=== PATIENT | female | born 1990 | race Two or more races ===

== ENCOUNTER 2020-09-21 14:55 | Emergency (ER) | payer OTHER ==
[~2020-09-21] VITALS: Ht 157.5 cm; Wt 68.6 kg
[2020-09-21 16:05] LABS: BASO % 0 % (0-3); EOS # 0.1 x10^3/uL (0.0-0.7); EOS % 2 % (0-3); HEMATOCRIT 36.6 % (36.0-47.0); HEMOGLOBIN 12.6 g/dL (12.0-15.5); LYMPH # 1.7 x10^3/uL (1.0-4.8); LYMPH % 22 % (24-48); MEAN CORPUSCULAR HEMOGLOBIN 31 pg (25-35); MEAN CORPUSCULAR HGB CONC 34 g/dL (31-37); MEAN CORPUSCULAR VOLUME 90 fL (79-100); MONO # 0.5 x10^3/uL (0.0-1.1); MONO % 7 % (0-9); NEUT # 5.6 x10^3/uL (1.8-7.7); NEUT % 70 % (31-73); PLATELET COUNT 157 x10^3/uL (140-400); RED BLOOD COUNT 4.07 x10^6/uL (3.50-5.40); RED CELL DISTRIBUTION WIDTH 12.9 % (11.5-14.5)
[2020-09-21 16:25] LABS: CALCIUM 9.2 mg/dL (8.5-10.1); CREATININE 0.8 mg/dL (0.6-1.0); GFR 85.4; POTASSIUM 3.8 mmol/L (3.5-5.1)
[2020-09-21 16:31] LABS: ALBUMIN 3.8 g/dL (3.4-5.0); ALBUMIN/GLOBULIN RATIO 1.2 (1.0-1.7); TOTAL BILIRUBIN 0.3 mg/dL (0.2-1.0); TOTAL PROTEIN 7.1 g/dL (6.4-8.2)
--- NOTE | 2020-09-21 17:34 | PHYS DOC ---
General Adult EDM: Chief Complaint: VAGINAL BLEEDING HPI: HPI: Patient is a 30 year old female 5 para 4 currently 9 weeks presenting to the ED today with vaginal bleeding in , symptoms began yesterday. Patient states it is very light bleeding. Patient reports slight abdominal "contraction". Denies any nausea, vomiting. She states she has not seen an KITCHEN CLEANER yet Review of Systems: Review of Systems: Constitutional: Denies fever or chills. [] Eyes: Denies change in visual acuity. [] HENT: Denies nasal congestion or sore throat. [] Respiratory: Denies cough or shortness of breath. [] Cardiovascular: Denies chest pain or edema. [] GI: Reports vaginal bleeding in , denies nausea, vomiting, bloody stools or diarrhea. [] : Denies dysuria. [] Musculoskeletal: Denies back pain or joint pain. [] Integument: Denies rash. [] Neurologic: Denies headache, focal weakness or sensory changes. [] Psychiatric: Denies depression or anxiety. [] Heart Score: C/O Chest Pain: N/A Risk Factors: Risk Factors: DM, Current or recent (<one month) smoker, HTN, HLP, family history of CAD, obesity. Risk Scores: Score 0 - 3: 2.5% MACE over next 6 weeks - Discharge Home Score 4 - 6: 20.3% MACE over next 6 weeks - Admit for Clinical Observation Score 7 - 10: 72.7% MACE over next 6 weeks - Early Invasive Strategies Allergies: Allergies: Allergies Coded Allergies Type Severity Reaction Last Updated Verified No Known Drug Allergies 09/21/20 No Physical Exam: PE: Constitutional: Well developed, well nourished, no acute distress, non-toxic appearance. [] HENT: Normocephalic, atraumatic, bilateral external ears normal, oropharynx moist, no oral exudates, nose normal. [] Eyes: PERRLA, EOMI, conjunctiva normal, no discharge. [] Neck: Normal range of motion, no tenderness, supple, no stridor. [] Cardiovascular:Heart rate regular rhythm, no murmur [] Lungs & Thorax: Bilateral breath sounds clear to auscultation [] Abdomen: Bowel sounds normal, soft, no tenderness, no masses, no pulsatile masses. [] Pelvic exam External pelvic appears normal, cervix is visualized, closed, no CMT, no adnexal tenderness. Trace amount of brownish discharge in the vaginal vault Skin: Warm, dry, no erythema, no rash. [] Back: No tenderness, no CVA tenderness. [] Extremities: No tenderness, no cyanosis, no clubbing, ROM intact, no edema. [] Neurologic: Alert and oriented X 3, normal motor function, normal sensory function, no focal deficits noted. [] Psychologic: Affect normal, judgement normal, mood normal. [] Current Patient Data: Labs: Laboratory Tests Test 09/21/20 15:34 White Blood Count 8.0 x10^3/uL (4.0-11.0) Red Blood Count 4.07 x10^6/uL (3.50-5.40) Hemoglobin 12.6 g/dL (12.0-15.5) Hematocrit 36.6 % (36.0-47.0) Mean Corpuscular Volume 90 fL (79-100) Mean Corpuscular Hemoglobin 31 pg (25-35) Mean Corpuscular Hemoglobin Concent 34 g/dL (31-37) Red Cell Distribution Width 12.9 % (11.5-14.5) Platelet Count 157 x10^3/uL (140-400) Neutrophils (%) (Auto) 70 % (31-73) Lymphocytes (%) (Auto) 22 % (24-48) L Monocytes (%) (Auto) 7 % (0-9) Eosinophils (%) (Auto) 2 % (0-3) Basophils (%) (Auto) 0 % (0-3) Neutrophils # (Auto) 5.6 x10^3/uL (1.8-7.7) Lymphocytes # (Auto) 1.7 x10^3/uL (1.0-4.8) Monocytes # (Auto) 0.5 x10^3/uL (0.0-1.1) Eosinophils # (Auto) 0.1 x10^3/uL (0.0-0.7) Basophils # (Auto) 0.0 x10^3/uL (0.0-0.2) Maternal Serum HCG Beta Subunit 72177 mIU/mL (0-5) H Sodium Level 139 mmol/L (136-145) Potassium Level 3.8 mmol/L (3.5-5.1) Chloride Level 102 mmol/L (98-107) Carbon Dioxide Level 27 mmol/L (21-32) Anion Gap 10 (6-14) Blood Urea Nitrogen 10 mg/dL (7-20) Creatinine 0.8 mg/dL (0.6-1.0) Estimated GFR (Cockcroft-Gault) 85.4 BUN/Creatinine Ratio 13 (6-20) Glucose Level 69 mg/dL (70-99) L Calcium Level 9.2 mg/dL (8.5-10.1) Total Bilirubin 0.3 mg/dL (0.2-1.0) Aspartate Amino Transferase (AST) 19 U/L (15-37) Alanine Aminotransferase (ALT) 20 U/L (14-59) Alkaline Phosphatase 60 U/L (46-116) Total Protein 7.1 g/dL (6.4-8.2) Albumin 3.8 g/dL (3.4-5.0) Albumin/Globulin Ratio 1.2 (1.0-1.7) Laboratory Tests 09/21/20 15:34 Laboratory Tests 09/21/20 15:34 EKG: EKG: [] Radiology/Procedures: Radiology/Procedures: []PROCEDURE: OB <14 WKS W/TV INDICATION: Reason: Vaginal bleeding in / Spl. Instructions: / History: COMPARISON: None. TECHNIQUE: Grayscale and color ultrasound images of the pelvis. FINDINGS: There are 2 intrauterine is identified. Baby A has a crown-rump length of 13 mm and heart beat of 147 and baby B has a crown-rump length of 13 mm with a heart beat of 155. The uterus measures 110 x 46 mm. Vascular flow seen to the left maternal ovary. Amniotic sac unremarkable in shape. It is too early in to adequately assess the placenta. Follow-up could be obtained later in to assess whether they are mono or dichorionic. The poles abut one another and may be monoamniotic but this can be better evaluated later in . Right maternal ovary is not seen. Left maternal ovary is 38 x 25 x 30 mm with a 22 mm dominant follicle/small cyst. IMPRESSION: * Twin intrauterine is identified with positive heartbeat and estimated gestational age of 7 weeks and 3 days. Follow-up could be obtained to ensure appropriate development. Electronically signed by: Moody Garces MD (09/21/2020 5:51 PM) [id number] DICTATED and SIGNED BY: MOODY GARCES MD DATE: 09/21/20 [id number] 0 Course & Med Decision Making: Course & Med Decision Making Pertinent Labs and Imaging studies reviewed. (See chart for details) This is a 30-year-old female patient presented to the ED today with vaginal bleeding in that began yesterday. She states she is 9 weeks 5 para 4. Beta-hCG 56,721, CBC CMP with no acute findings, UA negative for infection, wet prep is negative. Her bleeding was trace amount. OB ultrasound noted for twin IUP's heart rate of 147 and 155. Results communicated to patient. Blood type A-, given RhoGam. Encouraged to follow-up with an KITCHEN CLEANER, Pelvic rest recommended. Return precautions provided Dragon Disclaimer: Dragon Disclaimer: This electronic medical record was generated, in whole or in part, using a voice recognition dictation system. Departure Departure Impression: Primary Impression: Threatened miscarriage in early Additional Impression: Twin in first trimester Qualified Codes: O30.001 - Twin , unspecified number of placenta and unspecified number of amniotic sacs, first trimester Disposition: HOME / SELF CARE / HOMELESS Condition: STABLE Referrals: UNKNOWN PCP NAME (PCP) MARIANO GUNN MD Follow-up with your KITCHEN CLEANER or your primary care doctor as soon as possible Patient Instructions: Threatened Miscarriage Additional Instructions: You were seen for vaginal bleeding in . You currently have twin babies in your uterus. We recommend you maintain bedrest, no strenuous activities, no heavy lifting, no intercourse until you are seen by your KITCHEN CLEANER. ADAL BERNARD JAVA DESIGNER Sep 21, 2020 17:34
--- NOTE | 2020-09-21 17:53 | RAD ---
INDICATION: Reason: Vaginal bleeding in / Spl. Instructions: / History: COMPARISON: None. TECHNIQUE: Grayscale and color ultrasound images of the pelvis. FINDINGS: There are 2 intrauterine is identified. Baby A has a crown-rump length of 13 mm and heart b eat of 147 and baby B has a crown-rump length of 13 mm with a heart beat of 155. The uterus measures 110 x 46 mm. Vascular flow seen to the left maternal ovary. Amniotic sac unremarkable in shape. It is too early in to adequately assess the placenta. F ollow-up could be obtained later in to assess whether they are mono or dichorionic. The fet al poles abut one another and may be monoamniotic but this can be better evaluated later in . Right maternal ovary is not seen. Left maternal ovary is 38 x 25 x 30 mm with a 22 mm dominant follicle/small cyst. IMPRESSION: * Twin intrauterine is identified with positive heartbeat and estimated gestational age of 7 weeks and 3 days. Follow-up could be obtained to ensure appropriate development. Electronically signed by: Dawson Garces MD (09/21/2020 5:51 PM) [id number]
[2020-09-21 18:26] LABS: BILIRUBIN,URINE NEGATIVE (NEG); CLARITY,URINE CLEAR; COLOR,URINE YELLOW; NITRITE,URINE NEGATIVE (NEG); PH,URINE 7.5 (<5.0-8.0); PROTEIN,URINE NEGATIVE (NEG-TRACE); UROBILINOGEN,URINE 0.2 mg/dL (0.2 mg/dL)
[2020-09-21 18:34] LABS: AMORPHOUS SEDIMENT,UR PRESENT /HPF; BACTERIA,URINE FEW /HPF (0-FEW)
[2020-09-21 18:35] LABS: RBC,URINE 0 /HPF (0-2)
[2020-09-21 19:00] VITALS: BP 93/52
[2020-09-21 19:46] VITALS: BP 113/63
[2020-09-23 02:08] LABS: GC PROBE Negative (Negative)
== END 2020-09-21 20:18 | disposition home or self-care (01) ==
LOC: ER 14:55
DX: O20.0 Threatened abortion (principal); O30.001 Twin pregnancy, unspecified number of placenta and unspecified number of amniotic sacs, first trimester; Z3A.09 9 weeks gestation of pregnancy
CPT/HCPCS: 36415; 36430; 76801; 76817; 80053; 81001; 84702; 85025; 86850; 86900; 86901; 87491; 87591; 99285; J2790; Q0111

== ENCOUNTER 2020-10-30 14:47 | Emergency (ER) | payer OTHER ==
[~2020-10-30] VITALS: Ht 152.4 cm; Wt 65.9 kg
[2020-10-30 16:43] LABS: BILIRUBIN,URINE NEGATIVE (NEG); CLARITY,URINE CLEAR; COLOR,URINE YELLOW; NITRITE,URINE NEGATIVE (NEG); PROTEIN,URINE NEGATIVE (NEG-TRACE); UROBILINOGEN,URINE 0.2 mg/dL (0.2 mg/dL)
[2020-10-30 16:50] LABS: BACTERIA,URINE 0 /HPF (0-FEW); RBC,URINE 0 /HPF (0-2); WBC,URINE 0 /HPF (0-4)
[2020-10-30 17:02] LABS: BASO % 1 % (0-3); EOS # 0.1 x10^3/uL (0.0-0.7); EOS % 2 % (0-3); HEMATOCRIT 39.2 % (36.0-47.0); HEMOGLOBIN 13.6 g/dL (12.0-15.5); LYMPH # 1.6 x10^3/uL (1.0-4.8); LYMPH % 18 % (24-48); MEAN CORPUSCULAR HEMOGLOBIN 31 pg (25-35); MEAN CORPUSCULAR HGB CONC 35 g/dL (31-37); MEAN CORPUSCULAR VOLUME 89 fL (79-100); MONO # 0.5 x10^3/uL (0.0-1.1); MONO % 5 % (0-9); NEUT # 6.8 x10^3/uL (1.8-7.7); NEUT % 75 % (31-73); PLATELET COUNT 152 x10^3/uL (140-400); RED BLOOD COUNT 4.41 x10^6/uL (3.50-5.40); WHITE BLOOD COUNT 9.1 x10^3/uL (4.0-11.0)
[2020-10-30 17:13] LABS: CALCIUM 9.3 mg/dL (8.5-10.1); CREATININE 0.6 mg/dL (0.6-1.0); POTASSIUM 3.5 mmol/L (3.5-5.1)
--- NOTE | 2020-10-30 17:28 | PHYS DOC ---
Past Medical History Additional Past Medical Histor: NO ABO (ANN RODRIGUEZ) Past Surgical History: No Surgical History (ANN RODRIGUEZ) Smoking Status: Never Smoker Alcohol Use: None (ANN RODRIGUEZ) General Adult EDM: Chief Complaint: VAGINAL BLEEDING Problems: (1) Twin in first trimester (ANN RODRIGUEZ) HPI: HPI: Patient is a 30 year old A0 female who presents with vaginal bleeding at 14 weeks . Patient states that for the past couple days, she has noted a small amount of pink discharge/blood on tissue. However, today at 13:05 she noticed a significant amount of blood in the toilet when she went to the bathroom. She states that the bleeding has subsided, and she is not having to change pads since the incident today. There have been no clots in the bleeding. Patient denies pain or trauma before or during the bleeding. Patient gets care at in the clinic there. She was told that her is high risk, and to have a low threshold for seeking evaluation if anything seems off. Patient has no other complaints at this time (ANN RODRIGUEZ) Review of Systems: Review of Systems: Constitutional: Denies fever or chills. Respiratory: Denies cough or shortness of breath. Cardiovascular: Denies chest pain or edema. GI: Denies abdominal pain, nausea, vomiting, bloody stools or diarrhea. : See HPI Musculoskeletal: Denies back pain or joint pain. (ANN RODRIGUEZ) Heart Score: C/O Chest Pain: No (ANN RODRIGUEZ) Allergies: Allergies: Allergies Coded Allergies Type Severity Reaction Last Updated Verified No Known Drug Allergies 09/21/20 No (ANN RODRIGUEZ) Physical Exam: PE: Constitutional: Well developed, well nourished, no acute distress, non-toxic appearance. Cardiovascular:Heart rate regular rhythm, no murmur. Cap refill <2 seconds, no pallor noted. Lungs & Thorax: Bilateral breath sounds clear to auscultation. Abdomen: Bowel sounds normal, soft, no tenderness, no masses, no pulsatile masses. Back: No tenderness, no CVA tenderness. Extremities: No tenderness, no cyanosis, no clubbing, ROM intact, no edema. (ANN RODRIGUEZ) Current Patient Data: Labs: Laboratory Tests Test 10/30/20 16:15 10/30/20 16:35 10/30/20 16:53 Urine Collection Type Unknown Urine Color Yellow Urine Clarity Clear Urine pH 7.0 (<5.0-8.0) Urine Specific [place] <=1.005 (1.000-1.030) Urine Protein Negative mg/dL (NEG-TRACE) Urine Glucose (UA) Negative mg/dL (NEG) Urine Ketones (Stick) Negative mg/dL (NEG) Urine Blood Small (NEG) Urine Nitrite Negative (NEG) Urine Bilirubin Negative (NEG) Urine Urobilinogen Dipstick 0.2 mg/dL (0.2 mg/dL) Urine Leukocyte Esterase Negative (NEG) Urine RBC 0 /HPF (0-2) Urine WBC 0 /HPF (0-4) Urine Squamous Epithelial Cells Few /LPF Urine Bacteria 0 /HPF (0-FEW) Bedside Urine HCG, Qualitative Hcg positive (Negative) White Blood Count 9.1 x10^3/uL (4.0-11.0) Red Blood Count 4.41 x10^6/uL (3.50-5.40) Hemoglobin 13.6 g/dL (12.0-15.5) Hematocrit 39.2 % (36.0-47.0) Mean Corpuscular Volume 89 fL (79-100) Mean Corpuscular Hemoglobin 31 pg (25-35) Mean Corpuscular Hemoglobin Concent 35 g/dL (31-37) Red Cell Distribution Width 13.0 % (11.5-14.5) Platelet Count 152 x10^3/uL (140-400) Neutrophils (%) (Auto) 75 % (31-73) Lymphocytes (%) (Auto) 18 % (24-48) Monocytes (%) (Auto) 5 % (0-9) Eosinophils (%) (Auto) 2 % (0-3) Basophils (%) (Auto) 1 % (0-3) Neutrophils # (Auto) 6.8 x10^3/uL (1.8-7.7) Lymphocytes # (Auto) 1.6 x10^3/uL (1.0-4.8) Monocytes # (Auto) 0.5 x10^3/uL (0.0-1.1) Eosinophils # (Auto) 0.1 x10^3/uL (0.0-0.7) Basophils # (Auto) 0.0 x10^3/uL (0.0-0.2) Maternal Serum HCG Beta Subunit 21125 mIU/mL (0-5) Sodium Level 137 mmol/L (136-145) Potassium Level 3.5 mmol/L (3.5-5.1) Chloride Level 102 mmol/L (98-107) Carbon Dioxide Level 26 mmol/L (21-32) Anion Gap 9 (6-14) Blood Urea Nitrogen 5 mg/dL (7-20) Creatinine 0.6 mg/dL (0.6-1.0) Estimated GFR (Cockcroft-Gault) 119.0 Glucose Level 78 mg/dL (70-99) Calcium Level 9.3 mg/dL (8.5-10.1) Laboratory Tests 10/30/20 16:53 Vital Signs: Vital Signs Date Time Temp Pulse Resp B/P (MAP) Pulse Ox O2 Delivery O2 Flow Rate FiO2 10/30/20 16:11 98.5 63 22 110/53 (72) 100 Room Air 98.5 (MICHAELANN PA) Radiology/Procedures: Radiology/Procedures: PROCEDURE: OB < 14 WKS US OB <14 WKS +TV DATE: 10/30/2020 4:53 PM INDICATION: vag bleeding . LMP 07/29/2020. COMPARISON: 09/21/2020. TECHNIQUE: Transabdominal ultrasonography of the pelvis was performed. Color Doppler and duplex were utilized as appropriate. FINDINGS: The uterus measures 13 x 9 x 12 cm. Intrauterine twin gestation. Twin A: No heart tones detected. [place]-rump length of 6.36 cm which corresponds to 12 weeks 5 day gestation. Twin B: No heart tones detected. [place]-rump length of 6.87 cm which corresponds to 13 weeks 1 day gestation. Yolk sac is not visualized. No perigestational fluid. There is no free pelvic fluid. The right ovary measures 2.5 x 2.5 x 1.8 cm. The left ovary measures 3.2 x 2.2 x 2.1 cm. No evidence of ovarian torsion. There is normal blood flow to both ovaries by color Doppler with arterial and venous waveforms detected. IMPRESSION: Twin intrauterine gestation with no cardiac motion detected for twin A or twin B. Electronically signed by: Mynor Sweet MD (10/30/2020 6:09 PM) [facility] ([facility]OD[facility]Z) Course & Med Decision Making: Course & Med Decision Making Pertinent Labs and Imaging studies reviewed. (See chart for details) Patient will receive an abdominal ultrasound and we will draw blood to check the beta hCG quant as well as any anemia or signs of disseminated infection. P atient states she is not in any pain and will not require any medications. Lab work is not concerning for anemia, infection, or UTI. Patient reports she is Rh negative. She will be given RhoGam in the department. Ultrasound did not show a heartbeat for either fetus. [facility] was contacted to advise misoprostol vs schedule D&C and determine patient follow up. Cytotec administration was discussed with information security consultant OB here at [facility] as well to verify we are able to administer in the ED. L&D RN Jodi came to department and reaffirmed plan of care and status. Patient understands that a repeat u ltrasound will not provide further information and that she may schedule follow up with her regular clinic for follow up. The patient prefers that Jodi from labor and delivery administer the Cytotec. Per Jodi, the Cytotec was placed posterior fornix as the cervical os was not large enough for the tablets. Patient is instructed to remain in bed laying down tonight and refrain from activity, as to prevent Cytotec tablets from displacement. Patient is aware of the effects of the medication and that she will have cramping and pain. She is instructed to return if she feels that there are any retained products of conception. (ANN RODRIGUEZ) Dragon Disclaimer: Dragheydi Disclaimer: This electronic medical record was generated, in whole or in part, using a voice recognition dictation system. (ANN RODRIGUEZ) Departure Departure Impression: Primary Impression: Incomplete miscarriage Disposition: 01 HOME / SELF CARE / HOMELESS Condition: STABLE Referrals: UNKNOWN PCP NAME (PCP) Patient Instructions: Incomplete Miscarriage, RhoGAM Additional Instructions: Over the next day to few days, you will have cramping and contractions. You may take the tramadol every 4-6 hours as needed for pain. Please follow-up with your mainspring torque tester for follow-up care and further recommendations. Return to the emergency department if you develop a fever, vaginal discharge, or unmanageable pain. Scripts Tramadol Hcl (TRAMADOL HCL) 100 Mg Tab.er.24h 100 MG PO Q6HRS for pain, #20 TAB Prov: JADA OLIVAREZ DO 10/31/20 ANN RODRIGUEZ Oct 30, 2020 17:28 JADA OLIVAREZ DO Oct 31, 2020 11:20
--- NOTE | 2020-10-30 18:11 | RAD ---
US OB <14 WKS +TV DATE: 10/30/2020 4:53 PM INDICATION: vag bleeding . LMP 07/29/2020. COMPARISON: 09/21/2020. TECHNIQUE: Transabdominal ultrasonography of the pelvis was performed. Color Doppler and duplex were utilized as appropriate. FINDINGS: The uterus measures 13 x 9 x 12 cm. Intrauterine twin gestation. Twin A: No heart tones detected. [place]-rump length of 6.36 cm which corresponds to 12 weeks 5 day gesta tion. Twin B: No heart tones detected. [place]-rump length of 6.87 cm which corresponds to 13 weeks 1 day gesta tion. Yolk sac is not visualized. No perigestational fluid. There is no free pelvic fluid. The right ovary measures 2.5 x 2.5 x 1.8 cm. The left ovary measures 3.2 x 2.2 x 2.1 cm. No evidence of ovarian torsion. There is normal blood flow to both ovaries by color Doppler with arterial and ana ous waveforms detected. IMPRESSION: Twin intrauterine gestation with no cardiac motion detected for twin A or twin B. Electronically signed by: Mynor Sweet MD (10/30/2020 6:09 PM) [facility]
[2020-10-30] MEDS ORDERED: miSOPROStol 200 MCG TABLET. VG ONE (19:30)
[2020-10-30] MEDS ORDERED: TRAM100T2 PO (19:40)
[2020-10-30 23:30] VITALS: BP 89/64
[2020-10-31] MEDS ORDERED: TRAM100T30 PO (11:19)
== END 2020-10-30 23:35 | disposition home or self-care (01) ==
LOC: ER 14:47
DX: O03.4 Incomplete spontaneous abortion without complication (principal); Z3A.14 14 weeks gestation of pregnancy
CPT/HCPCS: 36415; 36430; 76801; 80048; 81001; 81025; 84702; 85025; 86850; 86900; 86901; 99285; J2790

== ENCOUNTER 2021-01-24 13:43 | Observation (INO) | payer OTHER ==
[~2021-01-24] VITALS: Ht 152.4 cm; Wt 72.4 kg
[~2021-01-24 13:43] MED LIST: TRAM100T2 PO; TRAM100T30 PO
[2021-01-24] MEDS ORDERED: IV NORMAL SALINE 1000ML BAG 1,000 ML IV ONE (17:00)
[2021-01-24 17:02] LABS: BILIRUBIN,URINE NEGATIVE (NEG); CLARITY,URINE CLEAR; COLOR,URINE YELLOW; NITRITE,URINE NEGATIVE (NEG); PH,URINE 7.5 (<5.0-8.0); PROTEIN,URINE NEGATIVE (NEG-TRACE); UROBILINOGEN,URINE 0.2 mg/dL (0.2 mg/dL)
[2021-01-24 17:08] LABS: BACTERIA,URINE 0 /HPF (0-FEW); RBC,URINE 0 /HPF (0-2)
--- NOTE | 2021-01-24 17:10 | PHYS DOC ---
Past Medical History Additional Past Medical Histor: NO ABO (VIK COBB TEACHER ADULT EDUCATION) Past Surgical History: No Surgical History (VIK COBB APRN) Smoking Status: Never Smoker Alcohol Use: None (VIK COBB APRN) General Adult EDM: Chief Complaint: DIZZY/LIGHT HEADED HPI: HPI: Patient is a 30-year-old female who presents to the emergency department first for syncopal episodes that occurred today while at work. 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 She states tat she was standing at work when she had a syncopal episode. Witnesses deny any seizure-like activity. She reports that she woke up this morning with a headache but took the medication and went to work. She states that she felt lightheaded and had 4 syncopal episodes today. She denies hitting her head and states that someone was there to catch her every time. Patient reports a history of migraine-like headaches but has never received a migraine diagnosis. She states that her headaches have worsened over the last month. When she does have her headaches she does have photophobia and phonophobia but has never had syncope with them before. She is reporting phonophobia currently. Patient denies any seizure history, chest pain, neck or back pain, tinnitus, shortness of breath, vision changes/blurred vision, nausea, vomiting, unilateral weakness, photophobia. (VIK COBB APRN) Review of Systems: Review of Systems: Eyes: See HPI HENT: See HPI Respiratory: See HPI Cardiovascular: See HPI GI: See HPI Musculoskeletal: See HPI Neurologic: See HPI (VIK COBB APRN) Heart Score: C/O Chest Pain: No Risk Factors: Risk Factors: DM, Current or recent (<one month) smoker, HTN, HLP, family history of CAD, obesity. Risk Scores: Score 0 - 3: 2.5% MACE over next 6 weeks - Discharge Home Score 4 - 6: 20.3% MACE over next 6 weeks - Admit for Clinical Observation Score 7 - 10: 72.7% MACE over next 6 weeks - Early Invasive Strategies (VIK COBB APRN) Current Medications: Current Medications Medications (Trade) Dose Ordered Sig/Yaya Start Time Stop Time Status Last Admin Dose Admin Sodium Chloride 1,000 ml @ 1,000 mls/hr 1X ONCE 01/24/21 17:00 01/24/21 17:59 UNV (VIK COBB APRN) Allergies: Allergies: Allergies Coded Allergies Type Severity Reaction Last Updated Verified No Known Drug Allergies 01/24/21 No (VIK COBB APRN) Physical Exam: PE: Constitutional: Well developed, well nourished, no acute distress, non-toxic appearance. [] HENT: Normocephalic, atraumatic, bilateral external ears normal, oropharynx moist, no oral exudates, nose normal. [] Eyes: PERRL, 4 mm bilaterally, EOMI, dizziness with extraocular eye movement, horizontal nystagmus, conjunctiva normal, no discharge. [] Neck: Normal range of motion, no tenderness, supple, no stridor. [] Cardiovascular:Heart rate regular rhythm, no murmur [] Lungs & Thorax: Bilateral breath sounds clear to auscultation [] Abdomen: Bowel sounds normal, soft, no tenderness, no masses, no pulsatile masses. [] Skin: Warm, dry, no erythema, no rash. [] Back: Normal range of motion Extremities: No tenderness, no cyanosis, no clubbing, ROM intact, no edema. [] Neurologic: Alert and oriented X 3, normal motor function, normal sensory function, no focal deficits noted, equal res habilitation assistant strength bilaterally, patient moving all 4 extremities equally, no pronator drift, no speech changes. [] Psychologic: Affect normal, judgement normal, mood normal. [] (VIK COBB APRN) Current Patient Data: Labs: Laboratory Tests Test 01/24/21 16:20 01/24/21 16:27 01/24/21 17:18 Urine Collection Type Unknown Urine Color Yellow Urine Clarity Clear Urine pH 7.5 Urine Specific Lanse 1.020 Urine Protein Negative mg/dL Urine Glucose (UA) Negative mg/dL Urine Ketones (Stick) Negative mg/dL Urine Blood Negative Urine Nitrite Negative Urine Bilirubin Negative Urine Urobilinogen Dipstick 0.2 mg/dL Urine Leukocyte Esterase Trace Urine RBC 0 /HPF Urine WBC 1-4 /HPF Urine Squamous Epithelial Cells Mod /LPF Urine Bacteria 0 /HPF Urine Mucus Mod /LPF Bedside Urine HCG, Qualitative Hcg negative White Blood Count 8.5 x10^3/uL Red Blood Count 4.51 x10^6/uL Hemoglobin 14.0 g/dL Hematocrit 41.0 % Mean Corpuscular Volume 91 fL Mean Corpuscular Hemoglobin 31 pg Mean Corpuscular Hemoglobin Concent 34 g/dL Red Cell Distribution Width 12.4 % Platelet Count 164 x10^3/uL Neutrophils (%) (Auto) 70 % Lymphocytes (%) (Auto) 24 % Monocytes (%) (Auto) 5 % Eosinophils (%) (Auto) 1 % Basophils (%) (Auto) 0 % Neutrophils # (Auto) 5.9 x10^3/uL Lymphocytes # (Auto) 2.0 x10^3/uL Monocytes # (Auto) 0.4 x10^3/uL Eosinophils # (Auto) 0.1 x10^3/uL Basophils # (Auto) 0.0 x10^3/uL Sodium Level 140 mmol/L Potassium Level 3.5 mmol/L Chloride Level 105 mmol/L Carbon Dioxide Level 25 mmol/L Anion Gap 10 Blood Urea Nitrogen 11 mg/dL Creatinine 0.7 mg/dL Estimated GFR (Cockcroft-Gault) 99.6 BUN/Creatinine Ratio 16 Glucose Level 113 mg/dL Calcium Level 9.1 mg/dL Total Bilirubin 0.4 mg/dL Aspartate Amino Transf (AST/SGOT) 14 U/L Alanine Aminotransferase (ALT/SGPT) 19 U/L Alkaline Phosphatase 66 U/L Troponin I High Sensitivity < 4 ng/L Total Protein 7.6 g/dL Albumin 4.0 g/dL Albumin/Globulin Ratio 1.1 Current Medications Medications (Trade) Dose Ordered Sig/Yaya Route PRN Reason Start Time Stop Time Status Last Admin Dose Admin Sodium Chloride 1,000 ml @ 1,000 mls/hr 1X ONCE IV 01/24/21 17:00 01/24/21 17:59 DC 01/24/21 17:00 Laboratory Tests Test 01/24/21 16:27 POC Urine HCG, Qualitative Hcg negative (Negative) Vital Signs: Vital Signs Date Time Temp Pulse Resp B/P (MAP) Pulse Ox O2 Delivery O2 Flow Rate FiO2 01/24/21 13:57 98.6 98 18 126/68 (87) 98 Room Air 98.6 (VIK COBB APRN) EKG: EKG: EKG performed by ER staff at 1635 shows sinus rhythm with a heart rate of 76, QTC of 404, no STEMI read by Dr. Pollard at 1638 [] (VIK COBB APRN) Radiology/Procedures: Radiology/Procedures: []PROCEDURE: CT HEAD WO CONTRAST EXAMINATION: CT head without IV contrast INDICATION:30 years, Female, headache. COMPARISON: None TECHNIQUE: Spiral acquisition of contiguous images from the skull base to the vertex were obtained. Sagittal and coronal 2D reformatted series were provided by the technologist. Soft tissue and bone window algorithms were reviewed. Exposure: One or more of the following individualized dose reduction techniques were utilized for this examination: 1. Automated exposure control 2. Adjustment of the mA and/or kV according to patient size 3. Use of iterative reconstruction technique. FINDINGS: Neither mass, midline shift, intracranial hemorrhage, acute/subacute ischemic changes, nor extraaxial fluid collections are seen. The brain parenchyma is normal in appearance. The ventricles are normal in size. The paranasal sinuses, mastoid air cells, and middle ears are clear. The orbital contents appear within normal limits. IMPRESSION: No evidence of acute intracranial abnormality. Electronically signed by: Ramona Wright DO (01/24/2021 5:14 PM) [facility] DICTATED and SIGNED BY: RAMONA WRIGHT DO DATE: 01/24/[id number] 0 PROCEDURE: PORTABLE CHEST 1V EXAMINATION: XR CHEST 1V CLINICAL HISTORY: Syncope EXAM DATE/TIME: 01/24/2021 5:08 PM COMPARISON: None FINDINGS: Lines, Tubes, and Devices: None. Cardiomediastinal Silhouette: Within normal limits. Lungs and Pleura: Mild patchy opacities in the left lower lung zone. No evidence of pleural effusion or pneumothorax. Bones and Soft Tissues: No acute osseous abnormality. IMPRESSION: Mild patchy airspace disease in the left lower lung zone, possibly subsegmental atelectasis. Electronically signed by: Riky Norris DO (01/24/2021 5:31 PM) [facility] DICTATED and SIGNED BY: RIKY NORRIS DO DATE: 01/24/[id number] 0 (VIK COBB APRN) Course & Med Decision Making: Course & Med Decision Making Pertinent Labs and Imaging studies reviewed. (See chart for details) [] Patient presents to the emergency department for for syncopal episodes that o ccurred today while at work. Prior to the syncopal episode she was complaining of a headache this morning. Patient has history of migraine-like headaches but does not take any prescription medications for it and takes [id number] pain medication. Work-up in the ER consisted of blood work, EKG, chest x-ray and CT imaging of head. Patient treated with IV fluids and migraine cocktail. Work-up in the ER was unremarkable, negative urinalysis, negative CT of head and chest. ER nurse staff states that patient was seen 2 weeks ago for a miscarriage. A D-dimer was ordered and negative. Patient continues to deny shortness of breath, chest pain, she is no hypotensive and her vss, her CBC is unremarkable, her ECG shows sinus rhythm, negative CT head and no injury. I discussed patients case with supervising physician. Due to patient's numerous syncopal episodes today, she will need to be admitted, I spoke to Dr. Cerrato who agreed to admit the patient under his services for syncope. Patients vital signs continue to be stable, I discussed these findings with patient and care plan and she is agreeable at this time. (VIK COBB APRN) Dragon Disclaimer: Dragon Disclaimer: This electronic medical record was generated, in whole or in part, using a voice recognition dictation system. (VIK COBB APRN) Departure Departure Impression: Primary Impression: Syncope Qualified Codes: R55 - Syncope and collapse Disposition: ADMITTED INPATIENT Admitting Physician: ANA (VIK COBB APRN) Condition: GOOD Referrals: UNKNOWN PCP NAME (PCP) VIK COBB APRN Jan 24, 2021 17:10 SHARAN SNIDER MD Jan 25, 2021 03:38
--- NOTE | 2021-01-24 17:16 | RAD ---
EXAMINATION: CT head without IV contrast INDICATION:30 years, Female, headache. COMPARISON: None TECHNIQUE: Spiral acquisition of contiguous images from the skull base to the vertex were obtained. S agittal and coronal 2D reformatted series were provided by the technologist. Soft tissue and bone win marleny algorithms were reviewed. Exposure: One or more of the following individualized dose reduction techniques were utilized for thi s examination: 1. Automated exposure control 2. Adjustment of the mA and/or kV according to patient size 3. Use of iterative reconstruction technique. FINDINGS: Neither mass, midline shift, intracranial hemorrhage, acute/subacute ischemic changes, nor extraaxial fluid collections are seen. The brain parenchyma is normal in appearance. The ventricles are normal in size. The paranasal sinuses, mastoid air cells, and middle ears are clear. The orbital contents appear within normal limits. IMPRESSION: No evidence of acute intracranial abnormality. Electronically signed by: Demetris Wright DO (01/24/2021 5:14 PM) [facility]
[2021-01-24 17:28] LABS: BASO % 0 % (0-3); EOS # 0.1 x10^3/uL (0.0-0.7); EOS % 1 % (0-3); LYMPH % 24 % (24-48); MEAN CORPUSCULAR HEMOGLOBIN 31 pg (25-35); MEAN CORPUSCULAR HGB CONC 34 g/dL (31-37); MEAN CORPUSCULAR VOLUME 91 fL (79-100); MONO # 0.4 x10^3/uL (0.0-1.1); MONO % 5 % (0-9); NEUT # 5.9 x10^3/uL (1.8-7.7); NEUT % 70 % (31-73); PLATELET COUNT 164 x10^3/uL (140-400); RED BLOOD COUNT 4.51 x10^6/uL (3.50-5.40); RED CELL DISTRIBUTION WIDTH 12.4 % (11.5-14.5); WHITE BLOOD COUNT 8.5 x10^3/uL (4.0-11.0)
--- NOTE | 2021-01-24 17:33 | RAD ---
EXAMINATION: XR CHEST 1V CLINICAL HISTORY: Syncope EXAM DATE/TIME: 01/24/2021 5:08 PM COMPARISON: None FINDINGS: Lines, Tubes, and Devices: None. Cardiomediastinal Silhouette: Within normal limits. Lungs and Pleura: Mild patchy opacities in the left lower lung zone. No evidence of pleural effusion or pneumothorax. Bones and Soft Tissues: No acute osseous abnormality. IMPRESSION: Mild patchy airspace disease in the left lower lung zone, possibly subsegmental atelectasis. Electronically signed by: Riky Hooper DO (01/24/2021 5:31 PM) [facility]
[2021-01-24 17:38] LABS: CALCIUM 9.1 mg/dL (8.5-10.1); CREATININE 0.7 mg/dL (0.6-1.0); GFR 99.6; POTASSIUM 3.5 mmol/L (3.5-5.1)
[2021-01-24 17:44] LABS: ALBUMIN/GLOBULIN RATIO 1.1 (1.0-1.7); TOTAL BILIRUBIN 0.4 mg/dL (0.2-1.0); TOTAL PROTEIN 7.6 g/dL (6.4-8.2)
[2021-01-24] MEDS ORDERED: diphenhydrAMINE 50 MG/ML VIAL IVP ONE (18:15)
[2021-01-24] MEDS ORDERED: PROCHLORPERAZINE 10 MG/2 ML VIAL. IV ONE (18:15)
[2021-01-24] MEDS ORDERED: KETOROLAC 30 MG/ML VIAL. IVP ONE (18:15)
--- NOTE | 2021-01-24 19:30 | EKG ---
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
[2021-01-24 21:00] VITALS: BP 109/56
[2021-01-24 22:53] VITALS: BP 105/54
[2021-01-25 02:48] VITALS: BP 84/39
[2021-01-25 06:25] VITALS: BP 98/46
--- NOTE | 2021-01-25 10:31 | NUR ---
SS following for discharge planning. SS reviewed pt chart and discussed with pt RN. Pt is from home with spouse and is currently on room air. Self pay. Med Assist following. Discharge plan is currently to home when medically ready for discharge. SS will continue to follow for discharge planning.
[2021-01-25 11:00] VITALS: BP 107/54
--- NOTE | 2021-01-25 13:51 | SSS ---
DATE OF SERVICE: 01/25/2021 ADMIT DATE: 01/24/2021 CHIEF COMPLAINT: Syncope, dizziness, headache. HISTORY OF PRESENT ILLNESS: The patient is a pleasant, healthy 30-year-old female who had a headache yesterday and had syncopal episode while at work. We observed her overnight. This morning, she is doing well. We plan to discharge. PAST MEDICAL HISTORY: Benign other than 5 pregnancies and 4 deliveries. ALLERGIES: None. FAMILY HISTORY: Diabetes. SOCIAL HISTORY: She does not drink, smoke or take drugs. MEDICATIONS: Reviewed, please refer to the MRAD. REVIEW OF SYSTEMS: GENERAL: No history of weight change, weakness or fevers. SKIN: No bruising, hair changes or rashes. EYES: No blurred, double or loss of vision. NOSE AND THROAT: No history of nosebleeds, hoarseness or sore throat. HEART: No history of palpitations, chest pain or shortness of breath on exertion. LUNGS: Denies cough, hemoptysis, wheezing or shortness of breath. GASTROINTESTINAL: Denies changes in appetite, nausea, vomiting, diarrhea or constipation. GENITOURINARY: No history of frequency, urgency, hesitancy or nocturia. NEUROLOGIC: Denies history of numbness, tingling, tremor or weakness. PSYCHIATRIC: No history of panic, anxiety or depression. ENDOCRINE: No history of heat or cold intolerance, polyuria or polydipsia. EXTREMITIES: Denies muscle weakness, joint pain, pain on walking or stiffness. PHYSICAL EXAMINATION: VITALS: Within normal limits and are stable. GENERAL: No apparent distress. Alert and oriented. HEENT: Normal cephalic atraumatic, external auditory canals are patent. Eyes: Extraocular muscles are intact, pupils are equally round and reactive to light and accommodation. MUSCULOSKELETAL: Well developed, well nourished, good range of motion. ENDOCRINE: No thyromegaly was palpated. LYMPHATICS: No cervical chain or axillary nodes were noted. HEMATOPOIETIC: No bruising. NECK: Supple, no JVD, no thyromegaly was noted. LUNGS: Clear to auscultation in all lung castro without rhonchi or wheezing. HEART: RRR, S1, S2 present. Peripheral pulses intact, no obvious murmurs were noted. ABDOMEN: Soft, nontender. Positive bowel sounds, no organomegaly, normal bowel sounds. EXTREMITIES: Without any cyanosis, clubbing, or edema. Pedal pulses intact, Homans sign is negative. NEUROLOGIC: Normal speech, normal tone. A and O x 3, moves all extremities, no obvious focal deficits. PSYCHIATRIC: Normal affect, normal mood. Stable. SKIN: No ulcerations or rashes, good skin turgor, no jaundice. VASCULAR: Good capillary refill, neurovascular bundle appears to be intact. ASSESSMENT AND PLAN: Resolving syncope, suspect autonomic dysfunction, resolving headache. Clinically, she looks great. We will discharge. DISPOSITION: Home. ACTIVITY: As tolerated. DIET: Low sodium. MEDICATIONS: None. Please see the MRAD. TOTAL TIME: 34 minutes. ALEX/EARLE DR: Vikas TID: [id number]
--- NOTE | 2021-01-25 14:30 | NUR ---
DISCHARGE PIV ET TELE DISCONTINUED. PT GIVEN DISCHARGE INSTRUCTIONS IN [place]. AND PT INDICATE UNDERSTANDING. AMBULATES TO FRONT DOOR FOR DISCHARGE WITH TECH.
== END 2021-01-25 14:30 | disposition home or self-care (01) ==
LOC: ER 13:43 → 6 SOUTH 18:09
PROVIDERS: ADMIT Internal Medicine; ATTEND Internal Medicine
DX: R55 Syncope and collapse (principal); R42 Dizziness and giddiness; R51.9 Headache, unspecified; Z79.899 Other long term (current) drug therapy
CPT/HCPCS: 36415; 70450; 71045; 80053; 81001; 81025; 84484; 85025; 85379; 87086; 93005; 96360; 96361; 99285; G0378; J7030; G0379